=== PATIENT | male | born 1965 | race Caucasian/White ===

== ENCOUNTER 2021-02-10 21:49 | Outpatient (CLI) | payer SELFPAY | END 2021-02-10 21:50 | disposition critical access hospital (66) | LOC: EMS 21:49 | DX: R55 Syncope and collapse (principal) | CPT/HCPCS: A0425; A0429 ==

== ENCOUNTER 2021-02-10 22:05 | Emergency (ER) | payer BC ==
[2021-02-10] MEDS ORDERED: SODIUM CHLORIDE 0.9% 1,000 ML IV STA (22:18)
--- NOTE | 2021-02-10 22:21 | ED Physician Documentation ---
PD HPI SYNCOPE - Stated complaint Stated Complaint: SYNCOPE - Chief complaint Chief Complaint: Neuro - History obtained from History obtained from: Patient - History of Present Illness Witnessed: Witnessed - Treatment prior to arrival Treatment prior to arrival: Patient arrives to the emergency department with chief complaint of syncope. Patient in town visiting family from [place]. Was sitting on couch, began to experience tunnel vision, stood up and syncopized. Reports has been off of his regular medications for the last 3 days, states that approximately 45 minutes prior to the event he took his hydrochlorothiazide, buspirone, gabapentin, Cymbalta. Denies previous episodes of syncope. Denies chest pain, chest pressure, heart palpitations, shortness of breath prior to the event. Past medical significant for hypertension, GERD, depression, bipolar disorder, chronic back pain with sciatica. Review of Systems Ten Systems: 10 systems reviewed and negative Constitutional: denies: Fever Eyes: denies: Loss of vision Ears: denies: Loss of hearing GI: denies: Abdominal Pain : denies: Dysuria Skin: denies: Rash Neurologic: denies: Generalized weakness PD PAST MEDICAL HISTORY - Past Medical History Cardiovascular: Hypertension GI: GERD Psych: Depression, Bipolar disorder - Present Medications Home Medications: Ambulatory Orders Medication Instructions Recorded Confirmed Duloxetine HCl [Cymbalta] 60 mg PO BID 02/10/21 02/10/21 Gabapentin [Neurontin] 400 mg PO TID 02/10/21 02/10/21 Pantoprazole [Protonix] 40 mg PO DAILY 02/10/21 02/10/21 buPROPion [Wellbutrin Sr] 300 mg PO DAILY 02/10/21 02/10/21 busPIRone [Buspar] 15 mg PO BID 02/10/21 02/10/21 hydroCHLOROthiazide [Hydrodiuril] 25 mg PO DAILY 02/10/21 02/10/21 - Allergies Allergies/Adverse Reactions: Allergies Allergy/AdvReac Type Severity Reaction Status Date / Time No Known Drug Allergies Allergy Verified 02/10/21 22:16 PD ED PE NORMAL - General General: Alert and oriented X 3 - HEENT HEENT: Atraumatic - Neck Neck: Supple, no meningeal sign - Cardiac Cardiac: RRR, No gallop, No rub - Respiratory Respiratory: No respiratory distress - Abdomen Abdomen: Normal bowel sounds, Non tender - Male Male : Deferred - Rectal Rectal: Deferred Results - Vitals Vitals: Vital Signs - 24 hr 02/10/21 02/10/21 02/10/21 22:13 22:18 22:22 Temperature 36.1 C L Heart Rate 77 78 Heart Rate [ 68 Sitting] Heart Rate [ 83 Standing] Heart Rate [ 73 Supine] Respiratory 17 14 Rate Blood Pressure 93/61 Blood Pressure 121/63 [Sitting] Blood Pressure 115/73 [Standing] Blood Pressure 113/65 [Supine] O2 Saturation 98 95 02/10/21 02/10/21 02/10/21 22:25 22:43 23:15 Temperature Heart Rate 77 76 Heart Rate [ Sitting] Heart Rate [ Standing] Heart Rate [ Supine] Respiratory 14 13 Rate Blood Pressure 113/65 132/61 H Blood Pressure [Sitting] Blood Pressure [Standing] Blood Pressure [Supine] O2 Saturation 96 96 02/10/21 02/11/21 23:34 00:15 Temperature Heart Rate 81 72 Heart Rate [ Sitting] Heart Rate [ Standing] Heart Rate [ Supine] Respiratory 15 15 Rate Blood Pressure 125/71 149/89 H Blood Pressure [Sitting] Blood Pressure [Standing] Blood Pressure [Supine] O2 Saturation 97 95 Oxygen O2 Source Room air - EKG (time done) 2212 Rate: Rate (enter#) (75) Rhythm: NSR [place]: Normal Intervals: Normal IN, Prolonged QT, QRS normal QRS: Normal Ischemia: Normal ST segments Compare to prior EKG: Old EKG unavailable Computer interpretation: Agree with computer 0009 Rate: Rate (enter#) (76) Rhythm: NSR [place]: Normal Intervals: Normal IN. No: Prolonged QT QRS: Normal Ischemia: Normal ST segments. No: Hyperacute T waves Other comments: Other comments (+PAC) Computer interpretation: Agree with computer - Labs Labs: Laboratory Tests 02/10/21 02/10/21 02/10/21 22:20 22:20 22:20 WBC 7.6 RBC 4.92 Hgb 15.4 Hct 45.0 MCV 91.5 MCH 31.3 H MCHC 34.2 RDW 13.1 Plt Count 239 MPV 9.0 Neut # (Auto) 4.2 Lymph # (Auto) 2.3 [place] # (Auto) 0.8 Eos # (Auto) 0.3 Baso # (Auto) 0.1 Absolute Nucleated RBC 0.00 Nucleated RBC % 0.0 Sodium 137 Potassium 3.1 L Chloride 95 L Carbon Dioxide 30 Anion Gap 12.0 BUN 18 Creatinine 1.3 H Estimated GFR (MDRD) 58 L Glucose 117 H Calcium 9.0 Magnesium 2.4 Total Bilirubin 1.0 AST 20 ALT 34 Alkaline Phosphatase 58 Troponin I High Sens 9.2 Total Protein 6.4 L Albumin 4.2 Globulin 2.2 Albumin/Globulin Ratio 1.9 Ethyl Alcohol 02/10/21 02/11/21 22:20 00:35 WBC RBC Hgb Hct MCV MCH MCHC RDW Plt Count MPV Neut # (Auto) Lymph # (Auto) [place] # (Auto) Eos # (Auto) Baso # (Auto) Absolute Nucleated RBC Nucleated RBC % Sodium Potassium Chloride Carbon Dioxide Anion Gap BUN Creatinine Estimated GFR (MDRD) Glucose Calcium Magnesium Total Bilirubin AST ALT Alkaline Phosphatase Troponin I High Sens 7.0 Total Protein Albumin Globulin Albumin/Globulin Ratio Ethyl Alcohol < 5.0 PD MEDICAL DECISION MAKING - ED course Complexity details: reviewed results, re-evaluated patient, d/w patient ED course: Patient is a 56-year-old male presenting to the emergency department after syncopal episode that occurred earlier this evening. Patient reported a history of being off of his medications for the last few days. This was due to the fact that he is visiting from [place]. He was able to fill all of his prescriptions recently and this evening took doses of his bupropion, hydrochlorothiazide, Cymbalta and gabapentin. Approximately 45 minutes after this he had an incident on the couch in which he developed tunnel vision and syncopized, striking his head. On arrival to the emergency department he had a nonfocal nonlateralizing neurologic exam however he was noted to have low-normal blood pressures with systolics in the 90s. His initial EKG did demonstrate a mild prolongation of QTC at 490, likely secondary to bupropion and Cymbalta. Comprehensive labs obtained demonstrated a mild hypokalemia and I did treat with both potassium and magnesium supplementation in the emergency department. Head CT was nonacute. Orthostatic vital signs obtained were within normal limits. Initial troponin as well as repeat troponin at approximately 120 minutes from the first draw was negative. Additionally a repeat EKG demonstrated PACs but a reduced QTc interval that was now within the normal limit. Given all these findings believe the patient is low risk for significant adverse event secondary to his syncopal episode. On reevaluation he reported feeling significantly better, was able to pass an ambulatory trial with ease. I counseled him on the importance of taking his medications regularly and as prescribed and he verbalized understanding of this. At this time I will discharge for follow-up with primary care when he returns home to [place] or return to the emergency department for any new or worsening symptoms. Departure - Departure Disposition: 01 Home, Self Care Clinical Impression: Syncope Condition: Fair Instructions: ED Dizziness Syncope Fainting W Pre, ED Fainting Unkn Cause Comments: Thank you for allowing us to care for you today at [facility] Please continue taking all of your currently prescribed medications. Please get plenty of rest and drink plenty of fluids over the course the next few days. I do recommend you follow-up with your primary care doctor when you return to [place] however in the interim if it anytime you have any new or recurrent symptoms of lightheadedness or syncope/passing out please return to the emergency department.
[2021-02-10 22:25] LABS: BASOPHILS # (AUTO) 0.1 10^3/uL (0.0-0.1); BASOPHILS % (AUTO) 0.9 %; EOSINOPHILS # (AUTO) 0.3 10^3/uL (0.0-0.7); EOSINOPHILS % (AUTO) 3.3 %; HGB - HEMOGLOBIN 15.4 g/dL (14.0-18.0); LYMPHOCYTES # (AUTO) 2.3 10^3/uL (1.5-3.5); LYMPHOCYTES % (AUTO) 30.2 %; MEAN CORPUSCULAR HEMOGLOBIN 31.3 pg (27.0-31.0); MEAN CORPUSCULAR HGB CONC 34.2 g/dL (32.0-36.0); MEAN CORPUSCULAR VOLUME 91.5 fL (80.0-94.0); MONOCYTES # (AUTO) 0.8 10^3/uL (0.0-1.0); MONOCYTES % (AUTO) 10.1 %; NEUTROPHILS # (AUTO) 4.2 10^3/uL (1.5-6.6); NEUTROPHILS % (AUTO) 55.1 %; PLT - PLATELET COUNT 239 10^3/uL (130-450); RED BLOOD COUNT 4.92 10^6/uL (4.70-6.10); RED CELL DISTRIBUTION WIDTH 13.1 % (12.0-15.0); WHITE BLOOD COUNT 7.6 x10^3/uL (4.8-10.8)
[2021-02-10 22:42] LABS: ALBUMIN 4.2 g/dL (3.2-5.5); ALBUMIN/GLOBULIN RATIO 1.9 (1.0-2.2); CREATININE 1.3 mg/dL (0.6-1.2); MAGNESIUM 2.4 mg/dL (1.7-2.8); POTASSIUM 3.1 mmol/L (3.5-5.0); TOTAL PROTEIN 6.4 g/dL (6.7-8.2)
[2021-02-10] MEDS ORDERED: MAGNESIUM SULFATE 2 GRAM 2 GM/50 ML BAG IV ONE (22:43)
--- NOTE | 2021-02-10 23:44 | CT Report ---
PROCEDURE: HEAD WO INDICATIONS: Syncope, closed head injury TECHNIQUE: Noncontrast 4.5 mm thick angled axial sections acquired from the foramen magnum to the vertex. For r adiation dose reduction, the following was used: automated exposure control, adjustment of mA and/or kV according to patient size. COMPARISON: None. FINDINGS: Image quality: Excellent. CSF spaces: Basal cisterns are patent. No extra-axial fluid collections. Ventricles are normal in size and shape. Brain: No midline shift. No intracranial masses or hemorrhage. Lee-white matter interface is norm al. Skull and face: Calvarium and visualized facial bones are intact, without suspicious lesions. Sinuses: Visualized sinuses and mastoids are clear. IMPRESSION: No acute intracranial abnormality demonstrated. Reviewed by: Murali Stack MD on 02/10/2021 11:42 PM PST Approved by: Murali Stack MD on 02/10/2021 11:42 PM PST Station ID: [id number]
[2021-02-11 01:08] VITALS: BP 140/100
== END 2021-02-11 01:32 | disposition home or self-care (01) ==
LOC: ED 22:05
DX: R55 Syncope and collapse (principal); E87.6 Hypokalemia; I49.1 Atrial premature depolarization; I10 Essential (primary) hypertension
CPT/HCPCS: 36415; 80053; 80320; 83735; 84484; 85025; 93005; 96365; 99284